=== PATIENT | male | born 1985 | race African-American/Black ===

== ENCOUNTER 2017-06-29 17:26 | Emergency (ER) | payer SELFPAY ==
[~2017-06-29 17:26] MED LIST: Z.0.NO CURRENT MEDS
[2017-06-29 17:33] VITALS: BP 154/76; PULSE 68; RESP 18; TEMP 99.4; O2SAT 100
[2017-06-29 18:30] VITALS: BP 137/73; PULSE 76; RESP 18; TEMP 99.5; O2SAT 100
--- NOTE | 2017-06-29 21:07 | PD ---
HPI Chief Complaint: Abdominal Pain Time Seen by Provider: 20:51 Travel History International Travel<30 days: No Contact w/Intl Traveler<30days: No Traveled to known affect area: No History of Present Illness HPI This patient complains of nausea and vomiting and abdominal cramping. Duration 3 days. Started shortly after eating a tunafish sandwich. No diarrhea or fever. Symptoms severity is moderate. No alleviating factors. No Exacerbating factors. No abdominal surgeries PFSH Social History Alcohol Use: No Tobacco Use: No Substance Use: No Allergies-Medications (Allergen,Severity, Reaction): Coded Allergies: No Known Allergies (Unverified Adverse Reaction, Unknown, 06/29/17) Reported Meds & Prescriptions Reported Meds & Active Scripts Active K-Vescent (Potassium Bicarbonate) 25 Meq Tab 50 Meq PO ONCE Tramadol (Tramadol HCl) 50 Mg Tab 50 Mg PO Q6H PRN Zofran (Ondansetron HCl) 4 Mg Tab 4 Mg PO Q6HR PRN Reported No Current Meds (Miscellaneous Medication) Misc Review of Systems General / Constitutional: No: Fever Eyes: No: Visual changes HENT: No: Headaches Cardiovascular: No: Chest Pain or Discomfort Respiratory: No: Shortness of Breath Gastrointestinal: Positive: Nausea, Vomiting, Abdominal Pain Genitourinary: No: Dysuria Musculoskeletal: No: Pain Skin: No Rash Neurologic: No: Weakness Psychiatric: No: Depression Endocrine: No: Polydipsia Hematologic/Lymphatic: No: Easy Bruising Physical Exam Narrative GENERAL: Well-nourished, well-developed patient in no apparent distress. SKIN: Focused skin assessment reveals no rash and nodules. Skin is Warm and dry. HEAD: Atraumatic. Normocephalic. EYES: Pupils equal and round. No scleral icterus. No injection or drainage. ENT: No nasal bleeding or discharge. Mucous membranes pink and moist. NECK: Trachea midline. No JVD. CARDIOVASCULAR: Regular rate and rhythm. No murmur appreciated. RESPIRATORY: No accessory muscle use. Clear to auscultation. Breath sounds equal bilaterally. GASTROINTESTINAL: Abdomen soft, non-tender, nondistended. Hepatic and splenic margins not palpable. MUSCULOSKELETAL: No obvious deformities. No clubbing. No cyanosis. No edema. NEUROLOGICAL: Awake and alert. No obvious cranial nerve deficits. Motor grossly within normal limits. Normal speech. PSYCHIATRIC: Appropriate mood and affect; insight and judgment normal. Data Data Last Documented VS Vital Signs Date Time Temp Pulse Resp B/P (MAP) Pulse Ox O2 Delivery O2 Flow Rate FiO2 06/29/17 18:30 99.5 76 18 137/73 (94) 100 Room Air Orders Orders Complete Blood Count With Diff (06/29/17 21:04) Comprehensive Metabolic Panel (06/29/17 21:04) Iv Access Insert/Monitor (06/29/17 21:04) NPO (06/29/17 21:04) Sodium Chloride 0.9% Flush (Ns Flush) (06/29/17 21:15) Sodium Chlor 0.9% 1000 Ml Inj (Ns 1000 M (06/29/17 21:15) Ondansetron Inj (Zofran Inj) (06/29/17 21:15) Ondansetron Inj (Zofran Inj) (06/29/17 23:45) Labs Laboratory Tests Test 06/29/17 21:27 White Blood Count 6.8 TH/MM3 Red Blood Count 4.45 MIL/MM3 Hemoglobin 13.7 GM/DL Hematocrit 37.6 % Mean Corpuscular Volume 84.5 FL Mean Corpuscular Hemoglobin 30.8 PG Mean Corpuscular Hemoglobin Concent 36.4 % Red Cell Distribution Width 13.5 % Platelet Count 163 TH/MM3 Mean Platelet Volume 8.6 FL Neutrophils (%) (Auto) 81.7 % Lymphocytes (%) (Auto) 8.8 % Monocytes (%) (Auto) 9.3 % Eosinophils (%) (Auto) 0.0 % Basophils (%) (Auto) 0.2 % Neutrophils # (Auto) 5.6 TH/MM3 Lymphocytes # (Auto) 0.6 TH/MM3 Monocytes # (Auto) 0.6 TH/MM3 Eosinophils # (Auto) 0.0 TH/MM3 Basophils # (Auto) 0.0 TH/MM3 CBC Comment DIFF FINAL Differential Comment Blood Urea Nitrogen 16 MG/DL Creatinine 1.31 MG/DL Random Glucose 101 MG/DL Total Protein 8.2 GM/DL Albumin 4.7 GM/DL Calcium Level 9.3 MG/DL Alkaline Phosphatase 73 U/L Aspartate Amino Transf (AST/SGOT) 22 U/L Alanine Aminotransferase (ALT/SGPT) 26 U/L Total Bilirubin 1.6 MG/DL Sodium Level 139 MEQ/L Potassium Level 3.2 MEQ/L Chloride Level 100 MEQ/L Carbon Dioxide Level 27.6 MEQ/L Anion Gap 11 MEQ/L Estimat Glomerular Filtration Rate 76 ML/MIN MDM Medical Decision Making Medical Screen Exam Complete: Yes Emergency Medical Condition: Yes Medical Record Reviewed: Yes Differential Diagnosis Dehydration, gastroenteritis, colitis Narrative Course I have reviewed the patient's electronic medical record. IV placed and 1 L normal saline IV bolus given as well as IV Zofran Abdomen is soft and benign and nontender Clinical suspicion for appendicitis or obstruction is low based on benign presentation and exam CBC is normal Metabolic profile shows mild hypokalemia 3.2 LFTs are normal I gave him a second dose of Zofran and a second liter of normal saline IV He is now euvolemic Has soft benign nontender abdomen Stable for outpatient follow-up Diagnosis Primary Impression: Nausea and vomiting Qualified Codes: R11.2 - Nausea with vomiting, unspecified Additional Impressions: Abdominal cramps Hypokalemia Additional Instructions: The patient was advised to follow up with their physician and return if they worsen. The patient was warned about potential sedation for the medications they will receive on prescription. I have recommended clear liquids for 24 hours, then gradually advance as tolerated. Med/Other Pt SpecificInfo: Prescription(s) given Scripts Potassium Bicarbonate Effervescent (K-Vescent) 25 Meq Tab 50 MEQ PO ONCE for Electrolyte Replacement, #2 TAB 0 Refills Prov: Joshua Valadez MD 06/29/17 Tramadol (Tramadol) 50 Mg Tab 50 MG PO Q6H Y for PAIN, #12 TAB 0 Refills Prov: Joshua Valadez MD 06/29/17 Ondansetron (Zofran) 4 Mg Tab 4 MG PO Q6HR Y for NAUSEA OR VOMITING, #12 TAB 0 Refills Prov: Joshua Valadez MD 06/29/17 Disposition: 01 DISCHARGE HOME Condition: Stable Joshua Valadez MD Jun 29, 2017 21:07
[2017-06-29] MEDS ORDERED: ONDANSETRON HCL 4 MG/2 ML VIAL IV ONE ×2 (21:15→23:45)
[2017-06-29] MEDS ORDERED: SODIUM CHLOR 0.9% 1000 ML INJ 1,000 ML IV ONE (21:15)
[2017-06-29] MEDS ORDERED: SODIUM CHLORIDE 0.9% FLUSH 10 ML FLUSH IV FLUSH PRN (21:15)
[2017-06-29 22:38] LABS: ALBUMIN 4.7 GM/DL (3.4-5.0); AST (GOT) 22 U/L (15-37); BICARBONATE 27.6 MEQ/L (21.0-32.0); BLOOD UREA NITROGEN 16 MG/DL (7-18); CALCIUM 9.3 MG/DL (8.5-10.1); CHLORIDE 100 MEQ/L (98-107); CREATININE 1.31 MG/DL (0.60-1.30); GLOMERULAR FILTRATION RATE 76 ML/MIN (>89); GLUCOSE,RANDOM 101 MG/DL (74-106); SODIUM (NA) 139 MEQ/L (136-145)
[2017-06-29 22:40] LABS: ALT (GPT) 26 U/L (12-78)
[2017-06-29 22:41] LABS: ALKALINE PHOSPHATASE 73 U/L (45-117); TOTAL BILIRUBIN ADULT 1.6 MG/DL (0.2-1.0); TOTAL PROTEIN 8.2 GM/DL (6.4-8.2)
[2017-06-29 22:50] LABS: AUTOMATED NEUTROPHIL # 5.6 TH/MM3 (1.8-7.7); BASOPHIL % 0.2 % (0.0-2.0); HEMATOCRIT 37.6 % (39.0-51.0); HEMOGLOBIN 13.7 GM/DL (13.0-17.0); LYMPH % 8.8 % (9.0-44.0); LYMPHOCYTE # 0.6 TH/MM3 (1.0-4.8); MEAN CELL VOLUME 84.5 FL (80.0-100.0); MEAN CORPUSCULAR HEMOGLOBIN 30.8 PG (27.0-34.0); MEAN CORPUSCULAR HGB CONC 36.4 % (32.0-36.0); MEAN PLATELET VOLUME 8.6 FL (7.0-11.0); MONO % 9.3 % (0.0-8.0); MONOCYTE # 0.6 TH/MM3 (0-0.9); NEUT % 81.7 % (16.0-70.0); PLATELET COUNT 163 TH/MM3 (150-450); RED BLOOD COUNT 4.45 MIL/MM3 (4.50-5.90); RED CELL DISTRIBUTION WIDTH 13.5 % (11.6-17.2); WHITE BLOOD COUNT 6.8 TH/MM3 (4.0-11.0)
[2017-06-29] MEDS ORDERED: ZOFR4TAB PO (23:40)
[2017-06-29] MEDS ORDERED: TRAM50TA PO (23:40)
[2017-06-29] MEDS ORDERED: KLORCONEF PO (23:40)
[2017-06-30] MEDS ORDERED: PROMETHAZINE INJ 25 MG/ML VIAL IM ONE
[2017-06-30 00:45] VITALS: BP 136/91
== END 2017-06-30 00:46 | disposition home or self-care (01) ==
LOC: NEPD 17:26
DX: R11.2 Nausea with vomiting, unspecified (principal); R10.9 Unspecified abdominal pain; E87.6 Hypokalemia
CPT/HCPCS: 80053; 85025; 96361; 96372; 96374; 96375; 99284; J2405; J2550; J7030